=== PATIENT | female | born 1960 | race African-American/Black ===

== ENCOUNTER 2024-08-11 10:38 | Emergency (ER) | payer BC, SELFPAY ==
[2024-08-11 10:55] VITALS: BP 157/89
[2024-08-11 11:28] LABS: % Basophils 0.3 % (0-2); % Eosinophils 0.9 % (0-6); % Immature Granulocytes 0.3 % (0-0.5); % Lymphocytes 18.7 % (20.5-51.1); % Monocytes 11.3 % (1.7-9.3); % Neutrophils 68.5 % (42.2-75.2); Absolute Eosinophils 0.1 10^3/uL (0-0.7); Absolute Lymphocytes 1.3 10^3/uL (1.2-3.4); Absolute Monocytes 0.8 10^3/uL (0.1-0.6); Absolute Neutrophils 4.8 10^3/uL (1.4-6.5); Hemoglobin 13.4 g/dL (12.0-16.0); Mean Corp Hgb Conc. 31.9 g/dL (33.0-37.0); Mean Platelet Volume 9.7 fL (7.4-10.4); Nucleated Red Blood Cells % 0 %; Platelet Count 277 10^3/uL (130-400); Red Blood Cell Count 5.83 10^6/uL (4.20-5.40); Red Cell Dist. Width 14.9 % (11.5-14.5)
[2024-08-11 11:30] LABS: COVID-19 Antigen Positive (Negative)
[2024-08-11 11:39] LABS: ALT (SGPT) 120 U/L (0-35); AST (SGOT) 96 U/L (14-36); Albumin 4.2 g/dl (3.5-5.0); Alkaline Phosphatase 86 U/L (38-126); Blood Urea Nitrogen 10 mg/dl (7-17); Calcium 8.8 mg/dl (8.4-10.2); Carbon Dioxide 29 mmol/L (22-30); Chloride 100 mmol/L (98-107); Glucose 102 mg/dl (70-99); Potassium 4.2 mmol/L (3.5-5.1); Sodium 137 mmol/L (135-145); Total Bilirubin 0.4 mg/dl (0.2-1.3); eGFR > 60.00
--- NOTE | 2024-08-11 13:57 | ED.GENMED ---
History of Present Illness
General
Chief Complaint: Breathing Problem
Source: patient
Exam Limitations: none
Time Seen by Provider: 08/11/24 12:12
Nursing documentation reviewed up to this point in time: agreed with
History of Present Illness
History of Present Illness:
64-year-old female with a history of GIST tumor, polyglandular autoimmune syndrome, liver disease of unknown origin celiac disease
Presents for fever, body aches, headache, dry cough and some shortness of breath as well as nausea and vomiting over the past 2 days. She was here several days ago for her for another issue and says that after leaving here and the following
day she started feeling sick. She believes she got sick while being in the emergency department waiting room. Patient took some Tylenol earlier today for low-grade temperature, she says she vomited once when she tried to take her medications. She
otherwise cannot keep down liquids and some solids. She has some upper abdominal discomfort currently. Patient was speaking with her family physician when I initiated the history and physical, and asked her family doctor to call her and olegario.
Past History
Past History
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
that they watch every year noncancerious, Alopecia, Thalassemia minor,)
ED Past Surgical History: Gynecological (hysterectomy) and Other (Liver biopsy)
Social History
Tobacco: Non-smoker
Alcohol: Occasional
Personal:
Living: with family
Review of Systems
Review of Systems
Allergies reviewed?: Yes
All Other Systems: Not applicable
Phy Exam
Physical Exam
Physical Exam:
GENERAL: Alert tearful, agitated
EYE: pupils equal and reactive
NECK: Supple
ENT: b/l TM s clear, pharynx erythematous but no tonsillar hypertrophy or exudates
CARDIAC: Regular rate and rhythm, no edema
LUNGS: Clear breath sounds bilaterally, no acute respiratory distress, no wheezes/rales/rhonchi, occ cough
ABDOMEN: Soft, mild upper abdominal tenderness epigastric region no distention, no r/g, no cvat, normal bowel sounds
NEUROLOGICAL: Alert and oriented, no focal neuro deficits
SKIN: Warm and dry, skin intact.
MUSCULOSKELETAL: No edema, well perfused.
PSYCH: Tearful
Scores
Heart Failure Risk
Heart Failure Risk Score: Not Applicable
Course
Orders/Labs/Results
Orders:
Orders
08/11/24 11:01
CR Chest - 2 Views Urgent
Comment:
Reason For Exam: SOB
08/11/24 11:07
CBC/With Diff [Complete Blood Count/With Diff] Urgent
COVID-19 Antigen Urgent
Source: Nasal Swab
Comprehensive Metabolic Panel Urgent
Lipase Urgent
Comment: ADD ON
Influenza A+B Rapid Molecular Urgent
ASHER Source: Nasal Swab
Specimen Description:
08/11/24 12:59
Electrocardiogram (*1) Urgent
Reason for Study: QTc Monitoring
EKG- Treatment ONCE
0.9% Sodium Chloride 1000 ml [Nss] 1,000 ml IV BOLUS
US Abdomen Complete/Upper Urgent
Comment:
Reason For Exam: elev lfts, liver dz, covid
08/11/24 13:40
Ondansetron Injectable [Zofran] 4 mg .ROUTE .STK-MED ONE
08/11/24 13:59
Ondansetron Injectable [Zofran] 4 mg IV NOW STA
08/11/24 14:48
Ketorolac [Toradol] 15 mg IV NOW STA
08/11/24 15:14
Add On- LAB Urgent
Tests Added?: lipase
Abnormal Lab Results
08/11/24
11:07
RBC 5.83 H 10^6/uL
(4.20-5.40)
MCV 72.0 L fL
(81.0-99.0)
MCH 23.0 L pg
(27.0-31.0)
MCHC 31.9 L g/dL
(33.0-37.0)
RDW 14.9 H %
(11.5-14.5)
Absolute Monos (auto) 0.8 H 10^3/uL
(0.1-0.6)
Lymphocytes % 18.7 L %
(20.5-51.1)
Monocytes % 11.3 H %
(1.7-9.3)
Glucose 102 H mg/dl
(70-99)
AST 96 H U/L
(14-36)
ALT 120 H U/L
(0-35)
SARS-CoV-2 Antigen Positive A
(Negative)
08/11/24 11:07
08/11/24 11:07
Vital Signs
Initial and Last Documented VS:
Initial Vital Signs
Temp Pulse Resp BP Pulse Ox
36.9 C 97 18 157/89 100
08/11/24 10:55 08/11/24 10:55 08/11/24 10:55 08/11/24 10:55 08/11/24 10:55
Last Documented Vital Signs
Temp Pulse Resp BP Pulse Ox
37.2 C 85 18 122/82 99
08/11/24 14:13 08/11/24 15:30 08/11/24 15:30 08/11/24 15:30 08/11/24 15:30
MDM/Problems Addressed
Differential Diagnosis Includes:
Influenza, COVID, viral syndrome, pneumonia, liver disease
MDM/Problems Addressed:
64-year-old female with a history of autoimmune conditions and 'immune suppression' related to polyglandular autoimmune syndrome presents for COVID-19. 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
visitor. She has headache, cough, abdominal pain and vomiting, shortness of breath. On exam she is tearful and upset, she was on the phone with her physician asking for him to call her in [facility]. She reports no pleuritic chest pain or
exertional shortness of breath, the patient was able to keep down liquids at home but did vomit some of her medication. Normally her liver enzymes are controlled. But patient is worried because they are slightly elevated today with an AST of 96
and ALT of 120.
Her white count is normal, pulse ox is stable, she is in no respiratory distress. Her x-rays independently reviewed by me and negative.
Plan is to check her ultrasound and likely anticipate discharge.
08/11/2024 1542 PM
Patient says she now feels better, blood pressure is better, headaches improved after Toradol and she would like to go home. She is aware of her elevated liver enzymes and with her history of liver disease I had offered her an ultrasound. She says
she is waiting too long would like to go and have her family doctor order this as an outpatient. I do highly suspect that her transaminitis is related to COVID-19 infection and they could potentially trend her liver LFTs to see if they improve
*Critical Care Note
Total Time (30-74mins, 75-104mins- exclusive of procedures): Not Applicable
ED Attending Note
-
Portions of this chart may have been created with voice recognition software.� Occasional wrong word or��sound alike� substitutions may have occurred due to the inherent limitations of voice recognition software.
Discharge Plan
Departure
Patient Disposition: Home (Routine Discharge)
Date of Disposition: 08/11/24
Time of Disposition: 15:31
Patient with high blood pressure during this ER visit?: No
Condition: Fair
Discharge Problem:
COVID-19
Instructions: COVID-19 - ED discharge instructions
Prescriptions:
New
ondansetron 4 mg tablet,disintegrating
4 mg PO ONCE PRN (Reason: nausea and vomiting) Qty: 1 0RF
No Action
fluconazole 100 MG tablet
100 mg PO WEEKLY
levothyroxine 25 MCG tablet
50 mcg PO DAILY
rosuvastatin 5 MG tablet
20 mg PO DAILY
Estrogen Patch
100 mg TD .THREETIMESAWEEK
K Dur
20 meq PO BID
sumatriptan succinate 50 MG tablet
50 mg PO DAILY PRN (Reason: headache) Qty: 15 0RF
Rx Instructions:
Take 50 mg by mouth times one. May repeat dose times one after 2 hours.
ethacrynic acid 25 MG tablet
25 mg PO BID
ursodiol 300 MG capsule
300 mg PO BID
cholecalciferol (vitamin D3) 10,000 UNIT tablet
50,000 unit PO .WEEKLY
naltrexone-bupropion [Contrave] 1 EACH tablet extended release
2 ea PO BID
Estrogen Ring
1 unit VAG .[id number]
hydrocodone-acetaminophen 1 TABLET tablet
1 tab PO Q4HPRN PRN (Reason: pain) Qty: 10 0RF
levofloxacin 500 mg tablet
500 mg PO DAILY 5 Days Qty: 5 0RF
phenazopyridine [Pyridium] 200 mg tablet
200 mg PO TID PRN (Reason: pain) Qty: 10 0RF
Referrals:
Vinayak Luna MD [Family Provider] - Follow up in 2-3 days
Activity Restrictions/Additional Instructions:
You tested positive for COVID-19 which likely explains your symptoms. You did have an elevation of her liver markers and we had wanted to do an ultrasound but you preferred to do this as an outpatient. Please stay hydrated. You can take another
dose of Zofran tonight before bed if needed for nausea and vomiting. Otherwise do not take it and instead take appropriate doses of Tylenol or ibuprofen for headaches and bodyaches. Eat a bland diet. You can take the paxlovid that your doctor
prescribed but hold your cholesterol medications while on it for 5 days. Return to the ER for worsening symptoms like severe abdominal pain, high fever not responding to Tylenol or ibuprofen, repeated vomiting, shortness of breath or any concerns
Interventions
Interventions:
*Risk Screen - Suicide Last Done: 08/11/24 10:55
*General Assessment Last Done: 08/11/24 10:55
*Neglect/Abuse Screening Last Done: 08/11/24 10:55
*ED COVID-19 Vaccine History Last Done: 08/11/24 14:14
Discharge Date and Time
Print Language: SPANISH
[2024-08-11 14:13] VITALS: BP 146/89
[2024-08-11] MEDS: NSS 1000 IV (14:15)
[2024-08-11] MEDS: ZOFRAN 4 MG IV (14:15)
[2024-08-11] MEDS: TORADOL 15 MG IV (14:52)
[2024-08-11 15:30] VITALS: BP 122/82
[2024-08-11 15:46] LABS: Lipase 208 U/L (23-300)
== END 2024-08-11 15:35 | disposition home or self-care (01) ==
LOC: EMR 10:38
PROVIDERS: EMERGENCY PHYSICIAN Emergency Medicine; FAMILY PHYSICIAN Internal Medicine
DX: U07.1 COVID-19 (principal); J45.909 Unspecified asthma, uncomplicated; E78.00 Pure hypercholesterolemia, unspecified; E03.9 Hypothyroidism, unspecified; E31.0 Autoimmune polyglandular failure; D56.3 Thalassemia minor; E27.1 Primary adrenocortical insufficiency
CPT/HCPCS: 99285; 96374; 96375; 96361; 71046; 80053; 83690; 85025; 87502; 87811; 93005